=== PATIENT | male | born 1940 | race African-American/Black ===

== ENCOUNTER 2018-12-25 12:50 | Inpatient (IN) | payer OTHER, MEDICAID ==
[~2018-12-25] VITALS: Ht 188 cm; Wt 93.9 kg
[2018-12-25] MEDS ORDERED: FOLI1 PO (13:04)
[2018-12-25] MEDS ORDERED: ALBU8.5H8 IH (13:04)
[2018-12-25] MEDS ORDERED: ATOR40TA28 PO (13:04)
[2018-12-25] MEDS ORDERED: FURO20 PO (13:04)
[2018-12-25] MEDS ORDERED: CLON-570 PO (13:04)
[2018-12-25] MEDS ORDERED: DOXA2TAB PO (13:04)
[2018-12-25] MEDS ORDERED: LISI-662 PO (13:04)
[2018-12-25] MEDS ORDERED: METF-960 PO (13:04)
[2018-12-25 13:37] LABS: BASOPHILS % (AUTO) 0.3 % (0.0-2.0); EOSINOPHILS % (AUTO) 3.2 % (1.0-6.0); HEMATOCRIT 38.5 % (41-53); HEMOGLOBIN 12.6 g/dL (13.5-17.5); LYMPHOCYTES % (AUTO) 42.3 % (22.0-44.0); MEAN CORPUSCULAR HEMOGLOBIN 31.3 pg (26.0-34.0); MEAN CORPUSCULAR HGB CONC 32.7 G/dL (31.0-37.0); MEAN CORPUSCULAR VOLUME 96 fL (80-100); MONOCYTES # (AUTO) 0.3 K/uL (0.1-1.0); MONOCYTES % (AUTO) 4.7 % (2.0-9.0); NEUTROPHILS # (AUTO) 3.6 K/uL (1.8-7.7); NEUTROPHILS % (AUTO) 49.5 % (40.0-70.0); PLATELET COUNT (AUTO) 249 K/uL (150-450); RED BLOOD CELL COUNT(AUTO) 4.03 MIL/uL (4.50-5.90); RED CELL DISTRIBUTION WIDTH 15.2 % (11.5-14.5)
[2018-12-25 14:01] LABS: ALBUMIN 4.3 g/dL (3.4-5.0); BILIRUBIN,TOTAL 0.4 mg/dL (0.1-1.0); CREATININE 1.51 mg/dL (0.60-1.30); POTASSIUM 4.1 mmol/L (3.5-5.1); TOTAL PROTEIN, SERUM 8.7 g/dL (6.4-8.2)
[2018-12-25 14:08] LABS: CALCIUM, TOTAL 9.9 mg/dL (8.8-10.5)
[2018-12-25 14:29] LABS: AMPHET/METH SCREEN,URINE NEGATIVE (NEGATIVE); BARBITURATE SCREEN, URINE NEGATIVE (NEGATIVE); BENZODIAZEPINES SCREEN,URINE NEGATIVE (NEGATIVE); CANNABINOID SCREEN,URINE NEGATIVE (NEGATIVE); COCAINE SCREEN,URINE POSITIVE (NEGATIVE); METHADONE SCREEN, URINE NEGATIVE (NEGATIVE); OPIATE SCREEN,URINE NEGATIVE (NEGATIVE)
[2018-12-25 14:34] LABS: APPEARANCE,URINE CLEAR (CLEAR); BILIRUBIN,URINE NEGATIVE (NEGATIVE); GLUCOSE, URINE (UA) NEGATIVE (NEGATIVE); KETONES,URINE NEGATIVE (NEGATIVE); LEUKOCYTE ESTERASE ,URINE NEGATIVE (NEGATIVE); NITRATE,URINE NEGATIVE (NEGATIVE); OCCULT BLOOD,URINE NEGATIVE (NEGATIVE); PROTEIN,URINE NEGATIVE (NEGATIVE); UROBILINOGEN,URINE 0.2 mg/dL (<=1.0)
[2018-12-25 14:35] LABS: BACTERIA,URINE None Seen /HPF (None Seen); PHENCYCLIDINE SCREEN,URINE NEGATIVE (NEGATIVE); RBC,URINE None Seen /HPF (0-2); WBC,URINE None Seen /HPF (0-5)
[2018-12-25] MEDS ORDERED: ZOLPIDEM TARTRATE 10 MG TABLET PO PRN (16:30)
[2018-12-25] MEDS ORDERED: HALOPERIDOL 5 MG TABLET PO PRN (16:30)
[2018-12-25] MEDS ORDERED: LORazepam 2 MG TABLET PO PRN (16:30)
[2018-12-26 02:09] VITALS: BP 164/96
[2018-12-26] MEDS ORDERED: PNEUMOCOCCAL VACCINE POLYVALENT 0.5 ML VIAL [PPSV23] IM ONE (02:45)
[2018-12-26] MEDS ORDERED: IBUPROFEN 600 MG TABLET PO PRN (05:15)
[2018-12-26] MEDS ORDERED: LOPERAMIDE HCL 2 MG CAPSULE PO PRN (05:15)
[2018-12-26] MEDS ORDERED: BACITRACIN 28.4 GM OINTMENT TP PRN (05:15)
[2018-12-26] MEDS ORDERED: MAG HYDROX/AL HYDROX/SIMETH ES 30 ML SUSPENSION UDCUP PO PRN (05:15)
[2018-12-26] MEDS ORDERED: CloNIDine HCL 0.1 MG TABLET PO PRN (05:15)
[2018-12-26] MEDS ORDERED: ONDANSETRON HCL 4 MG TABLET PO PRN (05:15)
[2018-12-26] MEDS ORDERED: MAGNESIUM HYDROXIDE SUSPENSION 30 ML UDCUP PO PRN (05:15)
[2018-12-26] MEDS ORDERED: PETROLATUM,WHITE 28 GM JELLY TP PRN (05:15)
[2018-12-26] MEDS ORDERED: BENZOCAINE/MENTHOL LOZENGE MM PRN (05:15)
[2018-12-26] MEDS ORDERED: ACETAMINOPHEN 325 MG TABLET PO PRN (05:15)
[2018-12-26] MEDS ORDERED: ALBUTEROL SULFATE HFA 90 MCG/PUFF 8 GM INHALER IH PRN (05:15)
[2018-12-26] MEDS ORDERED: DEXTROSE 50%-WATER 25 GM/50 ML SYRINGE IVP PRN (05:30)
[2018-12-26 06:10] LABS: GLUCOMETER DEV NAME(LOC) 3E.I; GLUCOSE,POINT OF CARE 145 MG/DL (70-110)
[2018-12-26] MEDS: MetFORMIN HCL 500 MG TABLET PO SCH ×2 (07:14→17:00)
[2018-12-26] MEDS: INSULIN LISPRO 100 UNITS/ML SQ PRN ×2 (07:15→13:17)
[2018-12-26] MEDS: OMEPRAZOLE 20 MG CAPSULE PO SCH (08:52)
[2018-12-26] MEDS: ATORVASTATIN CALCIUM 40 MG TABLET PO SCH (08:52)
[2018-12-26] MEDS: FUROSEMIDE 20 MG TABLET PO SCH (08:52)
[2018-12-26] MEDS: DOCUSATE SODIUM 100 MG CAPSULE PO SCH (08:52)
[2018-12-26] MEDS: FOLIC ACID 1 MG TABLET PO SCH (08:52)
[2018-12-26] MEDS: LISINOPRIL 20 MG TABLET PO SCH ×2 (08:53→09:00)
[2018-12-26 10:23] VITALS: BP 162/90
[2018-12-26 11:19] LABS: GLUCOMETER DEV NAME(LOC) 3E.I; GLUCOSE,POINT OF CARE 132 MG/DL (70-110)
[2018-12-26 16:23] VITALS: BP 139/74
[2018-12-26 16:55] LABS: GLUCOMETER DEV NAME(LOC) 3E.I; GLUCOSE,POINT OF CARE 126 MG/DL (70-110)
[2018-12-26] MEDS: DOXAZOSIN MESYLATE 2 MG TABLET PO SCH (20:51)
[2018-12-26 21:19] LABS: GLUCOMETER DEV NAME(LOC) 3E.I; GLUCOSE,POINT OF CARE 123 MG/DL (70-110)
[2018-12-27 06:19] LABS: GLUCOMETER DEV NAME(LOC) 3E.I; GLUCOSE,POINT OF CARE 130 MG/DL (70-110)
[2018-12-27] MEDS: MetFORMIN HCL 500 MG TABLET PO SCH ×2 (06:49→17:48)
[2018-12-27 08:35] VITALS: BP 140/83
[2018-12-27] MEDS: LISINOPRIL 20 MG TABLET PO SCH ×2 (09:00→09:35)
[2018-12-27] MEDS: FOLIC ACID 1 MG TABLET PO SCH (09:34)
[2018-12-27] MEDS: DOCUSATE SODIUM 100 MG CAPSULE PO SCH (09:34)
[2018-12-27] MEDS: OMEPRAZOLE 20 MG CAPSULE PO SCH (09:35)
[2018-12-27] MEDS: ATORVASTATIN CALCIUM 40 MG TABLET PO SCH (09:35)
[2018-12-27] MEDS: FUROSEMIDE 20 MG TABLET PO SCH (09:35)
[2018-12-27] MEDS: CITALOPRAM HYDROBROMIDE 20 MG TABLET PO SCH (09:35)
[2018-12-27 11:40] LABS: GLUCOMETER DEV NAME(LOC) 3E.I; GLUCOSE,POINT OF CARE 138 MG/DL (70-110)
[2018-12-27] MEDS: INSULIN LISPRO 100 UNITS/ML SQ PRN ×3 (11:41→21:11)
[2018-12-27 16:00] VITALS: BP 151/82
[2018-12-27 16:04] LABS: GLUCOMETER DEV NAME(LOC) 3E.I; GLUCOSE,POINT OF CARE 130 MG/DL (70-110)
[2018-12-27] MEDS: DOXAZOSIN MESYLATE 2 MG TABLET PO SCH (20:06)
[2018-12-27 21:39] LABS: GLUCOMETER DEV NAME(LOC) 3E.I; GLUCOSE,POINT OF CARE 156 MG/DL (70-110)
[2018-12-28 06:10] LABS: GLUCOMETER DEV NAME(LOC) 3E.I; GLUCOSE,POINT OF CARE 112 MG/DL (70-110)
[2018-12-28] MEDS: MetFORMIN HCL 500 MG TABLET PO SCH ×2 (06:33→16:57)
[2018-12-28 08:05] VITALS: BP 164/99
[2018-12-28] MEDS: LISINOPRIL 20 MG TABLET PO SCH ×2 (08:44→08:45)
[2018-12-28] MEDS: FOLIC ACID 1 MG TABLET PO SCH (08:44)
[2018-12-28] MEDS: ATORVASTATIN CALCIUM 40 MG TABLET PO SCH (08:44)
[2018-12-28] MEDS: FUROSEMIDE 20 MG TABLET PO SCH (08:44)
[2018-12-28] MEDS: OMEPRAZOLE 20 MG CAPSULE PO SCH (08:44)
[2018-12-28] MEDS: DOCUSATE SODIUM 100 MG CAPSULE PO SCH (08:44)
[2018-12-28] MEDS: CITALOPRAM HYDROBROMIDE 20 MG TABLET PO SCH (08:44)
[2018-12-28 11:49] LABS: GLUCOMETER DEV NAME(LOC) 3E.I; GLUCOSE,POINT OF CARE 150 MG/DL (70-110)
[2018-12-28] MEDS: INSULIN LISPRO 100 UNITS/ML SQ PRN (11:53)
[2018-12-28 17:05] LABS: GLUCOMETER DEV NAME(LOC) 3E.I; GLUCOSE,POINT OF CARE 139 MG/DL (70-110)
[2018-12-28] MEDS: DOXAZOSIN MESYLATE 2 MG TABLET PO SCH (21:00)
[2018-12-28 22:23] VITALS: BP 155/86
[2018-12-28 22:34] LABS: GLUCOMETER DEV NAME(LOC) 3E.I; GLUCOSE,POINT OF CARE 120 MG/DL (70-110)
[2018-12-29 06:14] LABS: GLUCOMETER DEV NAME(LOC) 3E.I; GLUCOSE,POINT OF CARE 113 MG/DL (70-110)
[2018-12-29] MEDS: MetFORMIN HCL 500 MG TABLET PO SCH ×2 (06:50→17:39)
[2018-12-29] MEDS: LISINOPRIL 20 MG TABLET PO SCH (09:19)
[2018-12-29] MEDS: OMEPRAZOLE 20 MG CAPSULE PO SCH (09:19)
[2018-12-29] MEDS: ATORVASTATIN CALCIUM 40 MG TABLET PO SCH (09:19)
[2018-12-29] MEDS: DOCUSATE SODIUM 100 MG CAPSULE PO SCH (09:19)
[2018-12-29] MEDS: FOLIC ACID 1 MG TABLET PO SCH (09:20)
[2018-12-29] MEDS: FUROSEMIDE 20 MG TABLET PO SCH (09:20)
[2018-12-29] MEDS: CITALOPRAM HYDROBROMIDE 20 MG TABLET PO SCH (09:20)
[2018-12-29 09:53] VITALS: BP 114/90
[2018-12-29 10:54] LABS: GLUCOMETER DEV NAME(LOC) 3E.I; GLUCOSE,POINT OF CARE 112 MG/DL (70-110)
[2018-12-29 16:49] LABS: GLUCOMETER DEV NAME(LOC) 3E.I; GLUCOSE,POINT OF CARE 133 MG/DL (70-110)
[2018-12-29 19:21] VITALS: BP 155/88
[2018-12-29] MEDS: DOXAZOSIN MESYLATE 2 MG TABLET PO SCH (20:44)
[2018-12-29 21:29] LABS: GLUCOMETER DEV NAME(LOC) 3E.I; GLUCOSE,POINT OF CARE 172 MG/DL (70-110)
[2018-12-30 05:30] LABS: GLUCOMETER DEV NAME(LOC) 3E.C; GLUCOSE,POINT OF CARE 98 MG/DL (70-110)
[2018-12-30] MEDS: MetFORMIN HCL 500 MG TABLET PO SCH (06:38)
[2018-12-30 08:00] VITALS: BP 150/89
[2018-12-30] MEDS: OMEPRAZOLE 20 MG CAPSULE PO SCH (08:54)
[2018-12-30] MEDS: FOLIC ACID 1 MG TABLET PO SCH (08:54)
[2018-12-30] MEDS: FUROSEMIDE 20 MG TABLET PO SCH (08:54)
[2018-12-30] MEDS: DOCUSATE SODIUM 100 MG CAPSULE PO SCH (08:54)
[2018-12-30] MEDS: LISINOPRIL 20 MG TABLET PO SCH (08:54)
[2018-12-30] MEDS: CITALOPRAM HYDROBROMIDE 20 MG TABLET PO SCH (08:54)
[2018-12-30] MEDS: ATORVASTATIN CALCIUM 40 MG TABLET PO SCH (08:54)
[2018-12-30] MEDS ORDERED: CITA-106 PO (11:54)
[2018-12-30] MEDS ORDERED: OMEP20 PO (12:12)
[2018-12-30 12:54] LABS: GLUCOMETER DEV NAME(LOC) 3EX.; GLUCOSE,POINT OF CARE 134 MG/DL (70-110)
== END 2018-12-30 15:30 | disposition home or self-care (01) | DRG 885 ==
LOC: EMS 12:50 → 3EI 23:30 → EMS 12-26 00:27 → 3EI 12-28 20:55
PROVIDERS: ADMIT Psychiatry & Neurology Psychiatry; ATTEND Psychiatry & Neurology Psychiatry
DX: F32.1 Major depressive disorder, single episode, moderate (principal); R45.851 Suicidal ideations; E11.65 Type 2 diabetes mellitus with hyperglycemia; E78.00 Pure hypercholesterolemia, unspecified; F14.90 Cocaine use, unspecified, uncomplicated; F17.200 Nicotine dependence, unspecified, uncomplicated; F22 Delusional disorders; I10 Essential (primary) hypertension; Z87.820 Personal history of traumatic brain injury; F10.10 Alcohol abuse, uncomplicated; Z71.41 Alcohol abuse counseling and surveillance of alcoholic; Z71.51 Drug abuse counseling and surveillance of drug abuser; Z79.899 Other long term (current) drug therapy
CPT/HCPCS: 83036; G0480

== ENCOUNTER 2021-09-15 08:18 | Inpatient (IN) | payer MEDICARE, MEDICAID ==
[~2021-09-15] VITALS: Ht 185.4 cm; Wt 100.5 kg
[~2021-09-15 08:18] MED LIST: ATOR40TA28 PO; CITA-144 PO; DOXA2TAB PO; FOLI-130 PO; FURO20 PO; LISI-894 PO; METF-1211 PO; OMEP20 PO
[2021-09-15 08:59] LABS: BASOPHILS % (AUTO) 0.7 % (0.0-2.0); EOSINOPHILS % (AUTO) 0.2 % (1.0-6.0); HEMOGLOBIN 12.9 g/dL (13.5-17.5); LYMPHOCYTES # (AUTO) 1.4 K/uL (1.0-4.8); LYMPHOCYTES % (AUTO) 17.4 % (22.0-44.0); MEAN CORPUSCULAR HEMOGLOBIN 33.9 pg (26.0-34.0); MEAN CORPUSCULAR HGB CONC 34.8 G/dL (31.0-37.0); MEAN CORPUSCULAR VOLUME 97 fL (80-100); MONOCYTES # (AUTO) 0.7 K/uL (0.1-1.0); MONOCYTES % (AUTO) 8.4 % (2.0-9.0); NEUTROPHILS % (AUTO) 73.3 % (40.0-70.0); PLATELET COUNT (AUTO) 228 K/uL (150-450); RED CELL DISTRIBUTION WIDTH 14.6 % (11.5-14.5)
[2021-09-15 09:07] LABS: ANION GAP 12 mmol/L (8-16); CALCIUM, TOTAL 9.7 mg/dL (8.8-10.5); CARBON DIOXIDE 28 mmol/L (22-29); CHLORIDE 98 mmol/L (98-107); CREATININE 2.54 mg/dL (0.60-1.30); GLOMERULAR FILTR. RATE CALC 30 mL/min (>60); GLUCOSE,RANDOM 214 mg/dL (70-110); POTASSIUM 4.2 mmol/L (3.5-5.1); SODIUM SERUM 138 mmol/L (136-145); UREA NITROGEN, BLOOD 24 mg/dL (7-18)
[2021-09-15 09:13] LABS: ALANINE AMINOTRANSFERASE 12 U/L (12-78); ALBUMIN 4.1 g/dL (3.4-5.0); ALKALINE PHOSPHATASE 58 U/L (46-116); ASPARTATE AMINOTRANSFERASE 12 U/L (15-37); BILIRUBIN,TOTAL 1.2 mg/dL (0.1-1.0); TOTAL PROTEIN, SERUM 8.2 g/dL (6.4-8.2)
[2021-09-15] MEDS ORDERED: HALOPERIDOL 5 MG TABLET PO PRN (11:30)
[2021-09-15] MEDS ORDERED: ZOLPIDEM TARTRATE 10 MG TABLET PO PRN (11:30)
[2021-09-15] MEDS ORDERED: LORazepam 2 MG TABLET PO PRN (11:30)
[2021-09-15 12:59] LABS: COVID AG,FIA SOURCE NASAL SWAB
[2021-09-15] MEDS ORDERED: SODIUM CHLORIDE 0.9% 1,000 ML IV ONE (15:45)
[2021-09-15] MEDS ORDERED: ACETAMINOPHEN 325 MG TABLET PO PRN (16:45)
[2021-09-15] MEDS ORDERED: SODIUM CHLORIDE 0.45% 1,000 ML IV ONE (16:45)
[2021-09-15] MEDS ORDERED: ZOLPIDEM TARTRATE 5 MG TABLET PO PRN (16:45)
[2021-09-15] MEDS ORDERED: BISACODYL 10 MG RECTAL RECTAL SUPPOSITORY PR PRN (16:45)
[2021-09-15] MEDS ORDERED: HYDROCODONE/ACETAMINOPHEN 5-325 MG TABLET PO PRN (16:45)
[2021-09-15] MEDS ORDERED: ONDANSETRON HCL 4 MG/2 ML VIAL IVP PRN (16:45)
[2021-09-15] MEDS ORDERED: MORPHINE SULFATE 2 MG/ML SYRINGE IVP PRN (16:45)
[2021-09-15] MEDS ORDERED: MAGNESIUM HYDROXIDE SUSPENSION 30 ML UDCUP PO PRN (16:45)
[2021-09-15] MEDS ORDERED: DEXTROSE 50%-WATER 25 GM/50 ML SYRINGE IVP PRN (17:00)
[2021-09-15 20:44] VITALS: BP 169/91
[2021-09-15] MEDS: DOCUSATE SODIUM 100 MG CAPSULE PO SCH (20:57)
[2021-09-15] MEDS: INSULIN LISPRO 100 UNITS/ML SQ PRN (21:02)
[2021-09-15 23:18] VITALS: BP 135/76
[2021-09-15] MEDS: HEPARIN SODIUM,PORCINE 5,000 UNITS/ML VIAL SQ SCH (23:27)
[2021-09-15 23:31] LABS: GLUCOMETER DEV NAME(LOC) 4E.2; GLUCOSE,POINT OF CARE 284 MG/DL (70-110)
[2021-09-15 23:45] LABS: AMPHET/METH SCREEN,URINE POSITIVE (NEGATIVE); BARBITURATE SCREEN, URINE NEGATIVE (NEGATIVE); BENZODIAZEPINES SCREEN,URINE NEGATIVE (NEGATIVE); CANNABINOID SCREEN,URINE NEGATIVE (NEGATIVE); COCAINE SCREEN,URINE POSITIVE (NEGATIVE); METHADONE SCREEN, URINE NEGATIVE (NEGATIVE); OPIATE SCREEN,URINE NEGATIVE (NEGATIVE)
[2021-09-15 23:46] LABS: PHENCYCLIDINE SCREEN,URINE NEGATIVE (NEGATIVE)
[2021-09-16 05:31] VITALS: BP 131/67
[2021-09-16] MEDS: INSULIN LISPRO 100 UNITS/ML SQ PRN ×3 (05:42→17:41)
[2021-09-16 06:50] LABS: CALCIUM, TOTAL 9.2 mg/dL (8.8-10.5); CHOL/HDL RATIO 2.8 (4.2-7.3); CREATININE 1.5 mg/dL (0.60-1.30); POTASSIUM 3.7 mmol/L (3.5-5.1)
[2021-09-16 07:07] LABS: GLUCOMETER DEV NAME(LOC) 4E.2; GLUCOSE,POINT OF CARE 165 MG/DL (70-110)
[2021-09-16 08:05] VITALS: BP 138/77
[2021-09-16] MEDS ORDERED: PANTOPRAZOLE SODIUM 40 MG DR TABLET PO SCH (09:00)
[2021-09-16] MEDS ORDERED: ATORVASTATIN CALCIUM 40 MG TABLET PO SCH (09:00)
[2021-09-16] MEDS ORDERED: OMEPRAZOLE 20 MG CAPSULE PO SCH (09:00)
[2021-09-16] MEDS ORDERED: FOLIC ACID 1 MG TABLET PO SCH (09:00)
[2021-09-16] MEDS: DOCUSATE SODIUM 100 MG CAPSULE PO SCH (09:06)
[2021-09-16] MEDS: HEPARIN SODIUM,PORCINE 5,000 UNITS/ML VIAL SQ SCH ×2 (09:07→17:02)
[2021-09-16] MEDS ORDERED: SODIUM CHLORIDE 0.45% 1,000 ML IV SCH (11:00)
[2021-09-16] MEDS ORDERED: SODIUM CHLORIDE 0.45% 500 ML IV SCH (11:06)
[2021-09-16 12:07] LABS: GLUCOMETER DEV NAME(LOC) 6N.1; GLUCOSE,POINT OF CARE 204 MG/DL (70-110)
[2021-09-16 16:45] VITALS: BP 168/92
[2021-09-16 17:36] LABS: GLUCOMETER DEV NAME(LOC) 6N.1; GLUCOSE,POINT OF CARE 142 MG/DL (70-110)
== END 2021-09-16 18:25 | disposition home or self-care (01) | DRG 682 ==
LOC: EMS 08:22 → 6S 11:18 → 6N 09-16 07:45
PROVIDERS: ADMIT Internal Medicine; ATTEND Internal Medicine
DX: N17.0 Acute kidney failure with tubular necrosis (principal); G92.9 Unspecified toxic encephalopathy; I13.0 Hypertensive heart and chronic kidney disease with heart failure and stage 1 through stage 4 chronic kidney disease, or unspecified chronic kidney disease; F29 Unspecified psychosis not due to a substance or known physiological condition; E11.22 Type 2 diabetes mellitus with diabetic chronic kidney disease; E86.0 Dehydration; E78.00 Pure hypercholesterolemia, unspecified; F32.9 Major depressive disorder, single episode, unspecified; I50.9 Heart failure, unspecified; N18.9 Chronic kidney disease, unspecified; K21.9 Gastro-esophageal reflux disease without esophagitis; F14.10 Cocaine abuse, uncomplicated; F15.10 Other stimulant abuse, uncomplicated; Z79.899 Other long term (current) drug therapy; Z20.822 Contact with and (suspected) exposure to COVID-19
CPT/HCPCS: 80048; 80053; 80061; 82962; 83036; 85025; 93005; 99285; G0480; J1644; J7030